=== PATIENT | female | born 2000 | race American Indian/Alaskan Native ===

== ENCOUNTER 2019-09-15 12:53 | Emergency (ER) | payer MEDICAID, OTHER ==
[2019-09-15 13:02] VITALS: BP 100/56; PULSE 111
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
== END 2019-09-15 14:23 | disposition swing bed (61) ==
LOC: VM.ED 12:53
DX: F41.9 Anxiety disorder, unspecified (principal)
CPT/HCPCS: 99283